=== PATIENT | female | born 1980 | race Caucasian/White ===

== ENCOUNTER 2016-07-22 09:37 | Emergency (ER) | payer OTHER ==
[2016-07-22 10:06] VITALS: BP 113/69; PULSE 90; RESP 18; TEMP 96.9
--- NOTE | 2016-07-22 10:39 | ED ---
Upper Extremity HPI - General Chief Complaint: Extremity Injury, Upper Stated Complaint: shoulder pain Time Seen by Provider: 07/22/16 10:24 Source: patient Mode of arrival: ambulatory Limitations: no limitations - History of Present Illness Initial Comments: This patient is a 36-year-old woman who presents with complaint of having left shoulder and back pains that come on after she had done some working. She indicates the left trapezius and left rhomboid areas. She states the pain is moderate however he gets severe she uses her left arm to reach for anything or with certain movements of her neck. She did not have any direct trauma to the area. There is no neurologic symptom. No radiation or weakness.. MD Complaint: Injury to:: left, shoulder Onset/Timin -: days(s) Other Extremity Injury: Shoulder: Left Other Injuries: none Handedness: right Improves With: none Worsens With: none Context: other (Lifting) Associated Symptoms: denies other symptoms Treatments Prior to Arrival: NSAIDS - Related Data Home Medications Medication Instructions Recorded Confirmed Ibuprofen [Motrin] 800 mg PO Q6H PRN 07/22/16 07/22/16 Previous Rx's Medication Instructions Recorded Ibuprofen [Motrin] 600 mg PO Q8HR PRN #20 tab 07/22/16 Methocarbamol [Robaxin-750] 750 mg PO TID PRN #30 tablet 07/22/16 Allergies Allergy/AdvReac Type Severity Reaction Status Date / Time tramadol AdvReac Confusion Verified 07/22/16 10:37 Review of Systems ROS Statement: Those systems with pertinent positive or pertinent negative responses have been documented in the HPI. ROS Other: All systems not noted in ROS Statement are negative. Constitutional: Denies: fever, chills, weakness Respiratory: Denies: cough, dyspnea Cardiovascular: Denies: chest pain, palpitations Musculoskeletal: Reports: as per HPI, myalgia. Denies: back pain, joint swelling, arthralgia Neurological: Denies: weakness, numbness Past Medical History Past Medical History: No Reported History History of Any Multi-Drug Resistant Organisms: None Reported Past Surgical History: Tonsillectomy Past Psychological History: Anxiety, Bipolar, Depression Smoking Status: Current every day smoker Past Alcohol Use History: None Reported Past Drug Use History: None Reported General Exam Limitations: no limitations General appearance: alert, in no apparent distress Head exam: Present: atraumatic, normocephalic Neck exam: Present: normal inspection, full ROM. Absent: tenderness, meningismus Extremities exam: Present: normal inspection, full ROM, tenderness (There is tenderness and increased tone to the left trapezius muscle as well as left rhomboid muscles. No bony tenderness or deformity), normal capillary refill Back exam: Present: normal inspection. Absent: vertebral tenderness Neurological exam: Present: alert. Absent: motor sensory deficit Skin exam: Present: warm, dry, intact, normal color. Absent: rash Course Vital Signs 07/22/16 10:02 Temperature 96.9 F L Pulse Rate 90 Respiratory 18 Rate Blood Pressure 113/69 O2 Sat by Pulse 98 Oximetry Disposition Clinical Impression: Strain of shoulder Disposition: HOME SELF-CARE Condition: Good Instructions: Muscle Strain (ED) Prescriptions: Ibuprofen [Motrin] 600 mg PO Q8HR PRN #20 tab PRN Reason: Pain Methocarbamol [Robaxin-750] 750 mg PO TID PRN #30 tablet PRN Reason: pain Referrals: Jeffrey Whaley MD [Primary Care Provider] - 1-2 days
== END 2016-07-22 11:05 | disposition home or self-care (01) ==
LOC: EC 09:37
DX: S46.912A Strain of unspecified muscle, fascia and tendon at shoulder and upper arm level, left arm, initial encounter (principal); F17.200 Nicotine dependence, unspecified, uncomplicated; Z88.6 Allergy status to analgesic agent; X50.9XXA Other and unspecified overexertion or strenuous movements or postures, initial encounter
CPT/HCPCS: 99283

== ENCOUNTER 2017-03-15 14:22 | Emergency (ER) | payer OTHER ==
[2017-03-15 14:29] VITALS: BP 111/71; PULSE 71; RESP 16; TEMP 97
--- NOTE | 2017-03-15 15:15 | ED ---
ENT HPI - General Chief complaint: Dental/Oral Stated complaint: Dental Pain Time Seen by Provider: 03/15/17 14:40 Source: patient Mode of arrival: ambulatory Limitations: no limitations - History of Present Illness Initial comments: This is a 36-year-old female who presents to the emergency department with chief complaint of dental pain. Patient states that she broke a left lower molar a few months ago. Yesterday she began to have pain in that area. She took ibuprofen which helped. This morning her pain had increased. Patient states that she does not have a dentist. Denies any drainage. Denies any radiation to jaw or neck. Denies any swelling. Denies fever, chills, chest pain , shortness of breath, abdominal pain, nausea or vomiting, constipation or diarrhea, dysuria or hematuria, numbness or tingling, headache or vision changes. - Related Data Home Medications Medication Instructions Recorded Confirmed Acetaminophen Tab [Tylenol Tab] 325 mg PO Q4H PRN 03/15/17 03/15/17 Cyclobenzaprine [Flexeril] 10 mg PO TID PRN 03/15/17 03/15/17 Diazepam [Valium] 10 mg PO BID PRN 03/15/17 03/15/17 Ibuprofen [Motrin] 1,000 mg PO Q6H PRN 03/15/17 03/15/17 Morphine Unknown Dose 1 tab PO ONCE PRN 03/15/17 03/15/17 Previous Rx's Medication Instructions Recorded Ibuprofen 600 mg PO Q6HR #30 tablet 03/15/17 Penicillin V Potassium [Pen Vee K] 500 mg PO QID 10 Days tab 03/15/17 Allergies Allergy/AdvReac Type Severity Reaction Status Date / Time tramadol AdvReac Confusion Verified 03/15/17 14:34 Review of Systems ROS Statement: Those systems with pertinent positive or pertinent negative responses have been documented in the HPI. ROS Other: All systems not noted in ROS Statement are negative. Past Medical History Past Medical History: No Reported History Additional Past Medical History / Comment(s): backpain History of Any Multi-Drug Resistant Organisms: None Reported Past Surgical History: Tonsillectomy Past Psychological History: Anxiety, Bipolar, Depression Smoking Status: Current every day smoker Past Alcohol Use History: None Reported Past Drug Use History: None Reported General Exam - General Exam Comments Initial Comments: General: Awake and alert, well-developed; in no apparent distress. HEENT: Head atraumatic, normocephalic. Pupils are equal, round and reactive to light. Extraocular movements intact. Oropharynx moist without erythema or exudate. Poor dentition throughout. Tooth #18 is missing crown. No areas of fluctuance or masses noted. Neck: Supple. Normal ROM. Cardiovascular: Regular rate and rhythm. No murmurs, rubs or gallops. Chest symmetrical. Respiratory: Lungs clear to auscultation bilaterally. No wheezes, rales or rhonchi. Normal respiratory effort with no use of accessory muscles. Skin: [place], warm and dry without rashes or lesions. Neurological: Alert and oriented x3. CN II-XII grossly intact. Speech is fluent and answers are appropriate. No focal neuro deficits. Psychiatric: Normal mood and affect. No overt signs of depression or anxiety noted. Limitations: no limitations Course Vital Signs 03/15/17 14:24 Temperature 97 F L Pulse Rate 71 Respiratory 16 Rate Blood Pressure 111/71 O2 Sat by Pulse 97 Oximetry Medical Decision Making - Medical Decision Making This is a 36-year-old female who presented to the emergency department for evaluation of toothache. Patient is missing crown of tooth #18. There are no areas of fluctuance or masses noted. Patient will be discharged home with a prescription for antibiotics and ibuprofen. She will be provided referral to dental clinic. I advised her to call them tomorrow morning to set up an appointment. Patient is in agreement with plan and voices understanding. All questions were answered. Disposition Clinical Impression: Fracture of tooth Disposition: HOME SELF-CARE Condition: Good Instructions: Toothache (ED) Additional Instructions: Please take medications as prescribed. Please follow up with primary care provider within 1-2 days. Return to emergency department if symptoms should worsen or any concerns arise. Please follow up with the [facility] dental clinic. [facility] [place] [address]. Phone number [phone] for new patients or [phone] for existing patients. Prescriptions: Ibuprofen 600 mg PO Q6HR #30 tablet Penicillin V Potassium [Pen Vee K] 500 mg PO QID 10 Days tab Referrals: Aretha Serrano MD [Primary Care Provider] - 1-2 days Time of Disposition: 15:14
== END 2017-03-15 15:20 | disposition home or self-care (01) ==
LOC: EC 14:22
DX: S02.5XXA Fracture of tooth (traumatic), initial encounter for closed fracture (principal); F17.200 Nicotine dependence, unspecified, uncomplicated; Z88.6 Allergy status to analgesic agent
CPT/HCPCS: 99282

== ENCOUNTER → 2017-04-20 | Outpatient (CLI) | payer OTHER ==
--- NOTE | 2017-04-21 08:36 | MM ---
Reason for exam: screening (asymptomatic). Baseline mammogram. History: Patient is nulliparous. Physical Findings: Nurse Summary: 0.5cm nodule in the right breast at 12 o'clock (nurse kalia). MG Screening Mammo w CAD Bilateral CC and MLO view(s) were taken. The breast tissue is heterogeneously dense. This may lower the sensitivity of mammography. There is no discrete abnormality. These results were verbally communicated with the patient and result sheet given to the patient on 04/20/17. ASSESSMENT: Incomplete: need additional imaging evaluation, BI-RAD 0 RECOMMENDATION: Ultrasound of the right breast. (at palpable) [facility] will attempt to contact patient to return for ultrasound.
--- NOTE | 2017-04-21 08:42 | USB ---
Reason for exam: additional evaluation requested from abnormal screening. History: Patient is nulliparous. Physical Findings: Breast exam preformed at baseline screening. US Breast Workup Limited RT Right breast ultrasound includes all four quadrants, the retroareolar region and axilla. Finding demonstrates a 0.4 x 0.2 x 0.5cm mixed lesion at 1 o'clock, a 0.5 x 0.3 x 0.6cm cystic cluster at 2 o'clock, a 0.8 x 0.4 x 0.7cm mixed lesion at 2 o'clock and a 0.5 x 0.3 x 0.6cm mixed lesion at 3 o'clock. These results were verbally communicated with the patient and result sheet given to the patient on 04/20/17. ASSESSMENT: Probably benign, BI-RAD 3 RECOMMENDATION: Ultrasound of the right breast in 6 months. Manage patient on a clinical basis.
== END | disposition home or self-care (01) ==
LOC: RADMAMWWP 13:47
PROVIDERS: ATTEND Family Medicine
DX: Z12.31 Encounter for screening mammogram for malignant neoplasm of breast (principal); R92.8 Other abnormal and inconclusive findings on diagnostic imaging of breast
CPT/HCPCS: 77067

== ENCOUNTER 2017-05-02 10:05 | Emergency (ER) | payer OTHER ==
[2017-05-02 10:55] VITALS: RESP 18
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
[2017-05-02 12:14] VITALS: BP 125/78; PULSE 91; TEMP 98
== END 2017-05-02 11:45 | disposition home or self-care (01) ==
LOC: EC 10:05
DX: K04.7 Periapical abscess without sinus (principal); F17.200 Nicotine dependence, unspecified, uncomplicated; Z88.5 Allergy status to narcotic agent
CPT/HCPCS: 99282

== ENCOUNTER 2018-12-27 09:57 | Emergency (ER) | payer OTHER ==
[2018-12-27] MEDS ORDERED: ALBUTEROL NEBULIZED 2.5 MG/3 ML INHALATION STA (10:12)
--- NOTE | 2018-12-27 10:18 | ED ---
URI HPI - General Chief Complaint: Upper Respiratory Infection Stated Complaint: cold Time Seen by Provider: 12/27/18 10:03 Source: patient Mode of arrival: ambulatory Limitations: no limitations - History of Present Illness Initial Comments: Patient is a 38-year-old female presenting to the emergency Department with complaints of cough and upper respiratory symptoms x 1 week. Patient states she started off with mild upper respiratory type symptoms such as cough, congestion, runny nose for the first 3 days, symptoms started to improve for a day and then approximately 5 days ago, symptoms worsened. Patient states she is having some shortness of breath when she tried to do activities, cough with white/yellow sputum production and increase in fatigue. Patient denies fever, chills, nausea, vomiting, diarrhea. Patient is in every day smoker. No history of asthma, COPD, pneumonia. Patient denies chest pain. Patient has no other complaints at this time. Upon arrival to ER, Patient was slightly tachycardia at 101 and 93% on room air. Rest of vitals are normal, afebrile. - Related Data Home Medications Medication Instructions Recorded Confirmed Phenylephrine/Dm/Acetaminop/GG 30 ml PO Q4H PRN 12/27/18 12/27/18 [Vicks Dayquil Severe Cold-Flu] Previous Rx's Medication Instructions Recorded Albuterol Inhaler [Ventolin Hfa 1 - 2 puff INHALATION RT-Q6H PRN 12/27/18 Inhaler] #1 inhaler Azithromycin [Zithromax Z-pack] 0 mg PO DIRECTED #1 pack 12/27/18 Allergies Allergy/AdvReac Type Severity Reaction Status Date / Time tramadol AdvReac Confusion Verified 12/27/18 10:25 Review of Systems ROS Statement: Those systems with pertinent positive or pertinent negative responses have been documented in the HPI. ROS Other: All systems not noted in ROS Statement are negative. Past Medical History Past Medical History: No Reported History Additional Past Medical History / Comment(s): backpain History of Any Multi-Drug Resistant Organisms: None Reported Past Surgical History: Tonsillectomy Past Psychological History: Anxiety, Bipolar, Depression Smoking Status: Current every day smoker Past Alcohol Use History: None Reported Past Drug Use History: None Reported General Exam - General Exam Comments Initial Comments: GENERAL: Patient appears fatigued, uncomfortable. HEAD: Atraumatic, normocephalic. EYES: Pupils equal round and reactive to light, extraocular movements intact, sclera anicteric, conjunctiva are normal. ENT: Left TM and EAC is normal, right TM is erythematous and bulging. Nares patent, oropharynx clear without exudates. Moist mucous membranes. NECK: Normal range of motion, supple without lymphadenopathy or JVD. LUNGS: Bilateral upper lobe wheezes, mild congestion present. No rales or rhonchi. HEART: Slightly tachycardia rate and rhythm without murmurs, rubs or gallops. ABDOMEN: Soft, nontender, normoactive bowel sounds. No guarding, no rebound. No masses appreciated. : Deferred EXTREMITIES: Normal range of motion, no pitting or edema. No clubbing or cyanosis. NEUROLOGICAL: Cranial nerves II through XII grossly intact. Normal speech, normal gait. PSYCH: Normal mood, normal affect. SKIN: Warm, Dry, normal turgor, no rashes or lesions noted. Limitations: no limitations Course Vital Signs 12/27/18 12/27/18 12/27/18 09:59 10:13 10:29 Temperature 97.5 F L 97.5 F L Pulse Rate 101 H 85 84 Respiratory 16 Rate Blood Pressure 117/79 O2 Sat by Pulse 93 L 100 Oximetry 12/27/18 12/27/18 10:30 10:40 Temperature Pulse Rate 76 Respiratory Rate Blood Pressure 111/88 O2 Sat by Pulse 93 L Oximetry Medical Decision Making - Medical Decision Making Patient is a 38-year-old female presenting with shortness of breath and upper respiratory symptoms x 1 week. Patient is in every day smoker. Exam revealed mild scattered wheezes. Pulse ox 93% on arrival. Chest x-ray reveals no acute processes. Influenza and strep are both negative. Patient does have an erythematous and bulging right TM was over patient is denying ear pain at this time. Patient was given a breathing treatment and reports improvement in symptoms. Patient will be started on azithromycin and albuterol inhaler for symptoms. Patient will follow-up with PCP if symptoms persist after 3-5 days. Patient is agreement with this plan of care. Return parameters were discussed with the patient and she verbalized understanding. Case discussed with Dr. Zamudio. - Lab Data Lab Results 12/27/18 12/27/18 Range/Units 10:15 10:15 Influenza Type A RNA Not Detected (Not Detectd) Influenza Type B (PCR) Not Detected (Not Detectd) Group A Strep Rapid Negative (Negative) Disposition Clinical Impression: Acute upper respiratory infection Disposition: HOME SELF-CARE Condition: Stable Instructions (If sedation given, give patient instructions): Upper Respiratory Infection (ED) Additional Instructions: Please return to the Emergency Department if symptoms worsen or any other c oncerns. Take antibiotics as prescribed. Use inhaler as needed for cough and shortness of breath. Follow-up with PCP as needed. Prescriptions: Albuterol Inhaler [Ventolin Hfa Inhaler] 1 - 2 puff INHALATION RT-Q6H PRN #1 inhaler PRN Reason: Cough Azithromycin [Zithromax Z-pack] 0 mg PO DIRECTED #1 pack Is patient prescribed a controlled substance at d/c from ED?: No Referrals: Soheila Aponte MD [Primary Care Provider] - 1-2 days
--- NOTE | 2018-12-27 10:54 | XR ---
EXAMINATION TYPE: XR chest 2V DATE OF EXAM: 12/27/2018 COMPARISON: NONE TECHNIQUE: PA and lateral views submitted. HISTORY: Cough and shortness of breath FINDINGS: The lungs are clear and there is no pneumothorax, pleural effusion, or focal pneumonia. Scoliosis n oted. No overt failure. Mild hyperinflation of the lungs. IMPRESSION: 1. No acute process.
[2018-12-27 11:29] VITALS: BP 114/69; PULSE 79; RESP 18; TEMP 97.1
== END 2018-12-27 11:29 | disposition home or self-care (01) ==
LOC: EC 09:57
DX: J06.9 Acute upper respiratory infection, unspecified (principal); F17.200 Nicotine dependence, unspecified, uncomplicated; Z88.5 Allergy status to narcotic agent
CPT/HCPCS: 71046; 87081; 87430; 87502; 94640; 99284

== ENCOUNTER → 2019-03-01 | Outpatient (CLI) | payer OTHER ==
--- NOTE | 2019-03-01 13:55 | US ---
EXAMINATION TYPE: US transvaginal DATE OF EXAM: 03/01/2019 COMPARISON: NONE CLINICAL HISTORY: N94.6 Dysmenorrhea. Painful periods for many years, 0 TECHNIQUE: Transvaginal only per ordering physician. Date of LMP: 02/09/2019 EXAM MEASUREMENTS: Uterus: 5.6 x 3.3 x 4.1 cm Endometrial Stripe: 0.7 cm Right Ovary: 2.1 x 1.3 x 1.8 cm Left Ovary: 2.9 x 2.3 x 2.7 cm 1. Uterus: retroverted, mildly heterogeneous 2. Endometrium: wnl 3. Right Ovary: multiple follicles 4. Left Ovary: multiple follicles 5. Bilateral Adnexa: free fluid seen right adnexa 6. Posterior cul-de-sac: free fluid seen IMPRESSION: Small amount of free fluid in pelvis extending towards right adnexa is nonspecific otherw ise unremarkable study.
== END | disposition home or self-care (01) ==
LOC: RADUSWWP 12:14
PROVIDERS: ATTEND Obstetrics & Gynecology
DX: N94.6 Dysmenorrhea, unspecified (principal)
CPT/HCPCS: 76830

== ENCOUNTER 2019-08-04 13:38 | Emergency (ER) | payer OTHER ==
[2019-08-04 13:43] VITALS: BP 123/85; PULSE 82; RESP 18; TEMP 97.8
[2019-08-04] MEDS ORDERED: PROPARACAINE 0.5% OPHTH DROPS 15 ML BTL RIGHT EYE STA (14:08)
[2019-08-04] MEDS ORDERED: FLUORESCEIN STRIPS 1 MG STRIP LEFT EYE ONE (14:08)
--- NOTE | 2019-08-04 14:13 | ED ---
Eye Problem HPI - General Source: patient Mode of arrival: ambulatory Limitations: no limitations <Stefano Blanc - Last Filed: 08/04/19 14:23> <Laurita Zamudio - Last Filed: 08/08/19 00:26> - General Chief complaint: Eye Problems Stated complaint: eye injury Time Seen by Provider: 08/04/19 14:00 - History of Present Illness Initial comments: Patient is a 39-year-old female presenting to emergency Department with a chief complaint of right eye pain. Patient reports she wears contacts and after she removed the before going to bed she developed some discomfort. Patient reports she attempted to itch her eye afterwards and was followed by constant tearing, eye irritation and surrounding erythema. Patient denies any pain with extraocular movements. States there is blurry vision in right eye, however that is due to the constant tearing. Denies taking any other medication. tetanus is up-to-date. (Stefano Blanc) - Related Data Home Medications Medication Instructions Recorded Confirmed Phenylephrine/Dm/Acetaminop/GG 30 ml PO Q4H PRN 12/27/18 12/27/18 [Vicks Dayquil Severe Cold-Flu] Previous Rx's Medication Instructions Recorded Albuterol Inhaler (Mhu) [Ventolin 1 - 2 puff INHALATION RT-Q6H PRN 12/27/18 Hfa Inhaler (Mhu)] #1 inhaler Azithromycin [Zithromax Z-pack] 0 mg PO DIRECTED #1 pack 12/27/18 Tobramycin [Tobrex 0.3% Ophth Soln] 1 drop BOTH EYES Q4HR #5 ml 08/04/19 Allergies Allergy/AdvReac Type Severity Reaction Status Date / Time tramadol AdvReac Confusion Verified 08/04/19 13:43 Review of Systems ROS Other: All systems not noted in ROS Statement are negative. <Stefano Blanc - Last Filed: 08/04/19 14:23> ROS Other: All systems not noted in ROS Statement are negative. <Laurita Zamudio - Last Filed: 08/08/19 00:26> ROS Statement: Those systems with pertinent positive or pertinent negative responses have been documented in the HPI. Past Medical History Past Medical History: No Reported History Additional Past Medical History / Comment(s): backpain History of Any Multi-Drug Resistant Organisms: None Reported Past Surgical History: Tonsillectomy Past Psychological History: Anxiety, Bipolar, Depression Smoking Status: Current every day smoker Past Alcohol Use History: None Reported Past Drug Use History: None Reported <Stefano Blanc - Last Filed: 08/04/19 14:23> General Exam Limitations: no limitations General appearance: alert, in no apparent distress Head exam: Present: atraumatic, normocephalic, normal inspection Eye exam: Present: normal appearance, PERRL, EOMI, other (Corneal abrasion noted. Negative Shimon sign. No entrapment) Pupils: Present: normal accommodation ENT exam: Present: normal exam, mucous membranes moist Neck exam: Present: normal inspection, full ROM Respiratory exam: Present: normal lung sounds bilaterally Cardiovascular Exam: Present: regular rate, normal rhythm, normal heart sounds Extremities exam: Present: normal inspection, full ROM Back exam: Present: normal inspection, full ROM Neurological exam: Present: alert, oriented X3, normal gait Psychiatric exam: Present: normal affect, normal mood Skin exam: Present: warm, dry, intact, normal color <Stefano Blanc - Last Filed: 08/04/19 14:23> Course Vital Signs 08/04/19 13:38 Temperature 97.8 F Pulse Rate 82 Respiratory 18 Rate Blood Pressure 123/85 O2 Sat by Pulse 96 Oximetry Medical Decision Making <Stefano Blanc - Last Filed: 08/04/19 14:23> <Laurita Zamudio - Last Filed: 08/08/19 00:26> - Medical Decision Making Patient is a 39-year-old female presenting to the emergency department with a chief complaint of right eye pain. Patient was attempting to remove her contacts and then was itching afterward. Patient developed sudden eye discomfort along with tearing and surrounding erythema. On exam patient appears to have a corneal abrasion. Her tetanus is up-to-date. No signs of entrapment or Shimon sign. No cellulitic changes there was just orbital or periorbital cellulitis. Patient started on tobramycin. Advised to return to emergency department if symptoms worsen. Advised to follow-up with an [employer] ticket checker. Return parameters thoroughly discussed the patient is understanding and agreeable. Case discussed with physician. (Stefano Blanc) I was available for consultation in the emergency department. The history and physical exam were done by the midlevel provider. I was consulted for this patients care. I reviewed the case with the midlevel provider and based on their presentation of the patient, I agree with the assessment, medical decision making and plan of care as documented. No signs of orbital or periorbital cellulitis. Chart was dictated using [employer] dictation software. Attempts were made to correct any dictation errors however some typographical errors may persist. Patient was seen during a national state of emergency due to the Covid-19 pandemic. (Laurita Zamudio) Disposition Is patient prescribed a controlled substance at d/c from ED?: No Time of Disposition: 14:37 <Stefano Blanc - Last Filed: 08/04/19 14:23> <Laurita Zamudio - Last Filed: 08/08/19 00:26> Clinical Impression: Corneal abrasion of right eye due to contact lens Disposition: HOME SELF-CARE Condition: Good Instructions (If sedation given, give patient instructions): Corneal Abrasion (DC) Additional Instructions: Take prescribed medication as directed. Follow up with an [employer] ticket checker in 3 days if symptoms not improved. Return to emergency department if symptoms worsen. Apply ice compress on the eye to help with the symptoms. Prescriptions: Tobramycin [Tobrex 0.3% Ophth Soln] 1 drop BOTH EYES Q4HR #5 ml Referrals: Soheila Aponte MD [Primary Care Provider] - 1-2 days
== END 2019-08-04 15:24 | disposition home or self-care (01) ==
LOC: EC 13:38
DX: H18.821 Corneal disorder due to contact lens, right eye (principal); F17.200 Nicotine dependence, unspecified, uncomplicated; Z88.5 Allergy status to narcotic agent
CPT/HCPCS: 99283

== ENCOUNTER 2019-09-27 13:19 | Emergency (ER) | payer OTHER ==
[2019-09-27 13:21] VITALS: RESP 18; TEMP 98
--- NOTE | 2019-09-27 14:15 | ED ---
General Adult HPI - General Chief complaint: ENT Stated complaint: Sore Throat, Body Aches Source: patient Mode of arrival: ambulatory Limitations: no limitations - History of Present Illness Initial comments: Patient is a 39-year-old female with no past medical history reasons emergency room with reported nasal congestion, sore throat and productive cough since yesterday. Reports that one of her children are sick as she got it from them. States it started with a scratchy throat. She then began having a productive cough with yellow sputum. Patient woke this morning with significant nasal congestion. Denies any fevers. Has not taken any medications for her symptoms at home. Called her primary care doctor condition and they couldn't get her in until tomorrow so she came into the emergency room. Denies hemoptysis, chest pain or shortness of breath. No bowel pain. No diarrhea or changes in urination. No concern for . Denies any ear pain. Does have a history of ALLERGIES. No other alleviating, precipitating or modifying factors. She denies contact with any covid positive contacts - Related Data Home Medications Medication Instructions Recorded Confirmed Acetaminophen Tab [Tylenol Tab] 1,000 mg PO Q6HR PRN 09/27/19 09/27/19 Ergocalciferol [Vitamin D2] 50,000 unit PO TUTH 09/27/19 09/27/19 Loratadine [Claritin] 10 mg PO DAILY 09/27/19 09/27/19 PARoxetine [Paxil] 10 mg PO DAILY 09/27/19 09/27/19 Previous Rx's Medication Instructions Recorded Albuterol Sulfate [Proair Hfa] 1 - 2 puff INHALATION Q4HR PRN #1 09/27/19 inhaler Loratadine [Claritin] 10 mg PO DAILY #30 tab 09/27/19 guaiFENesin [Mucinex] 600 mg PO Q12HR PRN #24 tab.er.12h 09/27/19 Allergies Allergy/AdvReac Type Severity Reaction Status Date / Time tramadol AdvReac Confusion Verified 09/27/19 13:49 Review of Systems ROS Statement: Those systems with pertinent positive or pertinent negative responses have been documented in the HPI. ROS Other: All systems not noted in ROS Statement are negative. Past Medical History Past Medical History: No Reported History Additional Past Medical History / Comment(s): backpain History of Any Multi-Drug Resistant Organisms: None Reported Past Surgical History: Tonsillectomy Past Psychological History: Anxiety, Bipolar, Depression Smoking Status: Current every day smoker Past Alcohol Use History: None Reported Past Drug Use History: None Reported General Exam Limitations: no limitations Course Vital Signs 09/27/19 09/27/19 13:20 15:53 Temperature 98.0 F Pulse Rate 97 84 Respiratory 18 18 Rate Blood Pressure 115/76 122/78 O2 Sat by Pulse 97 98 Oximetry Medical Decision Making - Medical Decision Making Upon arrival the patient is placed in room 20. Thorough history and physical exam was performed. Patient's throat was swabbed for strep. Chest x-ray was performed. Strep test is negative. Chest x-ray demonstrates no acute pulmonary process. Patient was given viscous lidocaine and a dose of Decadron 10 mg by mouth. I discussed diagnosis, differential and treatment options. I did recommend treatment with albuterol inhaler, Mucinex and Claritin. Patient has an appointment with her primary care doctor tomorrow. I encouraged that she keep this visit. Return to the emergency room for any new or worsening symptoms. Patient discharged home stable condition - Lab Data Lab Results 09/27/19 Range/Units 14:04 Group A Strep Rapid Negative (Negative) Disposition Clinical Impression: Pharyngitis, Cough, Bronchospasm Disposition: HOME SELF-CARE Condition: Stable Instructions (If sedation given, give patient instructions): Strep Throat (ED) Additional Instructions: Please follow up with your primary care doctor at your appt tomorrow. Return to the emergency room for any new or worsening symptoms Prescriptions: Loratadine [Claritin] 10 mg PO DAILY #30 tab guaiFENesin [Mucinex] 600 mg PO Q12HR PRN #24 tab.er.12h PRN Reason: Nasal Congestion Albuterol Sulfate [Proair Hfa] 1 - 2 puff INHALATION Q4HR PRN #1 inhaler PRN Reason: difficulty in breathing Is patient prescribed a controlled substance at d/c from ED?: No Referrals: Soheila Aponte MD [Primary Care Provider] - 1-2 days Time of Disposition: 15:51
--- NOTE | 2019-09-27 14:23 | XR ---
EXAMINATION TYPE: XR chest 2V DATE OF EXAM: 09/27/2019 COMPARISON: Chest radiograph 12/27/2018. HISTORY: Cough, pain. Sore throat, congestion, body aches for 2 days. TECHNIQUE: Frontal and lateral views of the chest are obtained. FINDINGS: There is no focal air space opacity, pleural effusion, or pneumothorax seen. The cardiac silhouette size is within normal limits. Dextroscoliosis of the thoracic spine. The osseous structure s are intact. IMPRESSION: No acute pulmonary process.
[2019-09-27] MEDS ORDERED: LIDOCAINE VISCOUS 2% 15 ML CUP MUCOUS MEM ONE (15:00)
[2019-09-27] MEDS ORDERED: DEXAMETHASONE 4 MG TAB PO STA (15:00)
[2019-09-27 16:02] VITALS: BP 122/78; PULSE 84
== END 2019-09-27 15:53 | disposition home or self-care (01) ==
LOC: EC 13:19
DX: J02.9 Acute pharyngitis, unspecified (principal); J98.01 Acute bronchospasm; F41.9 Anxiety disorder, unspecified; F32.9 Major depressive disorder, single episode, unspecified; F17.200 Nicotine dependence, unspecified, uncomplicated; Z79.899 Other long term (current) drug therapy; Z88.6 Allergy status to analgesic agent; Z20.828 Contact with and (suspected) exposure to other viral communicable diseases; Z90.89 Acquired absence of other organs
CPT/HCPCS: 87081; 87430; 71046; 99283; U0003; J8540

== ENCOUNTER 2020-04-12 18:14 | Emergency (ER) | payer OTHER ==
[2020-04-12 18:18] VITALS: BP 134/81; PULSE 63; RESP 18; TEMP 97.9
[2020-04-12] MEDS ORDERED: ACET/COD 300 MG/30 MG STARTER PACK 6 TAB BTL PO STA (18:28)
[2020-04-12] MEDS ORDERED: HYDROcodone/APAP 5-325MG 1 EACH TAB PO STA (18:28)
--- NOTE | 2020-04-12 18:28 | ED ---
ENT HPI - General Chief complaint: Dental/Oral Stated complaint: dental pain Time Seen by Provider: 04/12/20 18:18 Source: patient, RN notes reviewed Limitations: no limitations - History of Present Illness Initial comments: This a 39-year-old female presents emergency Department with chief complaint of dental pain. Patient states pain started yesterday has worsened throughout the night. Patient has known bad tooth and right lower. No fevers or chills. No difficulty swallowing. Patient states that she's been taken some Tylenol at home nothing recent states is not helping. Patient has not seen a dentist recently patient offers no complaints. - Related Data Home Medications Medication Instructions Recorded Confirmed Acetaminophen Tab [Tylenol Tab] 1,000 mg PO Q6HR PRN 09/27/19 09/27/19 Ergocalciferol [Vitamin D2] 50,000 unit PO TUTH 09/27/19 09/27/19 Loratadine [Claritin] 10 mg PO DAILY 09/27/19 09/27/19 PARoxetine [Paxil] 10 mg PO DAILY 09/27/19 09/27/19 Previous Rx's Medication Instructions Recorded Albuterol Sulfate [Proair Hfa] 1 - 2 puff INHALATION Q4HR PRN #1 09/27/19 inhaler Loratadine [Claritin] 10 mg PO DAILY #30 tab 09/27/19 guaiFENesin [Mucinex] 600 mg PO Q12HR PRN #24 tab.er.12h 09/27/19 Ibuprofen [Motrin] 600 mg PO Q8HR PRN #20 tab 04/12/20 Penicillin V Potassium [Pen Vee K] 500 mg PO QID #40 tablet 04/12/20 Allergies Allergy/AdvReac Type Severity Reaction Status Date / Time tramadol AdvReac Confusion Verified 04/12/20 18:18 Review of Systems ROS Statement: Those systems with pertinent positive or pertinent negative responses have been documented in the HPI. ROS Other: All systems not noted in ROS Statement are negative. Past Medical History Past Medical History: No Reported History Additional Past Medical History / Comment(s): backpain History of Any Multi-Drug Resistant Organisms: None Reported Past Surgical History: Tonsillectomy Past Psychological History: Anxiety, Bipolar, Depression Smoking Status: Current every day smoker Past Alcohol Use History: None Reported Past Drug Use History: None Reported General Exam Limitations: no limitations General appearance: alert, in no apparent distress Head exam: Present: atraumatic, normocephalic, normal inspection ENT exam: Present: mucous membranes moist. Absent: normal exam, normal oropharynx (Dental fracture, erosion of #32, no drainable abscess) Neck exam: Present: normal inspection, full ROM. Absent: tenderness, meningis mus, lymphadenopathy Respiratory exam: Present: normal lung sounds bilaterally. Absent: respiratory distress, wheezes, rales, rhonchi, stridor Cardiovascular Exam: Present: regular rate, normal rhythm, normal heart sounds. Absent: systolic murmur, diastolic murmur, rubs, gallop, clicks Course Vital Signs 04/12/20 18:15 Temperature 97.9 F Pulse Rate 63 Respiratory 18 Rate Blood Pressure 134/81 O2 Sat by Pulse 100 Oximetry Medical Decision Making - Medical Decision Making Patient was started on antibiotics, concerns of infection. Patient instructed to follow-up with dentist. Patient cried pain control return parameters were discussed. Disposition Clinical Impression: Fracture of tooth, Toothache Disposition: HOME SELF-CARE Condition: Stable Instructions (If sedation given, give patient instructions): Toothache (ED) Additional Instructions: Please return to the Emergency Department if symptoms worsen or any other concerns. Prescriptions: Ibuprofen [Motrin] 600 mg PO Q8HR PRN #20 tab PRN Reason: Pain Penicillin V Potassium [Pen Vee K] 500 mg PO QID #40 tablet Is patient prescribed a controlled substance at d/c from ED?: No Referrals: Soheila Aponte MD [Primary Care Provider] - 1-2 days Time of Disposition: 18:28
== END 2020-04-12 18:53 | disposition home or self-care (01) ==
LOC: EC 18:14
DX: S02.5XXA Fracture of tooth (traumatic), initial encounter for closed fracture (principal); M54.9 Dorsalgia, unspecified; F41.9 Anxiety disorder, unspecified; F32.9 Major depressive disorder, single episode, unspecified; F17.200 Nicotine dependence, unspecified, uncomplicated; Z79.899 Other long term (current) drug therapy; Z88.5 Allergy status to narcotic agent; X58.XXXA Exposure to other specified factors, initial encounter
CPT/HCPCS: 99283

== ENCOUNTER 2020-07-27 22:48 | Emergency (ER) | payer OTHER ==
[2020-07-27 23:15] LABS: Basophils # (A) 0.1 k/uL (0-0.2); Basophils % (A) 0 %; Eosinophils # (A) 0.1 k/uL (0-0.7); Eosinophils % (A) 1 %; HCT 48.6 % (34.0-46.0); HGB 16.1 gm/dL (11.4-16.0); Lymphocytes # (A) 2.4 k/uL (1.0-4.8); Lymphocytes % (A) 16 %; MCH 29.9 pg (25.0-35.0); MCV 90.5 fL (80.0-100.0); Mean Platelet Volume 7.9; Monocytes # (A) 0.5 k/uL (0-1.0); Monocytes % (A) 4 %; Neutrophils # (A) 11.3 k/uL (1.3-7.7); Neutrophils % (A) 77 %; Platelet Count 244 k/uL (150-450); RBC 5.37 m/uL (3.80-5.40); RDW 13.5 % (11.5-15.5); WBC 14.6 k/uL (3.8-10.6)
[2020-07-27 23:26] LABS: Albumin 4.5 g/dL (3.5-5.0); Calcium 9.4 mg/dL (8.4-10.2); Potassium 4.3 mmol/L (3.5-5.1); Total Bilirubin 0.6 mg/dL (0.2-1.3); Total Protein 7.6 g/dL (6.3-8.2)
[2020-07-27 23:40] LABS: Appearance,Urine Cloudy (Clear); Bilirubin,Urine Negative (Negative); Blood,Urine Negative (Negative); Color,Urine Yellow; Glucose,Urine (UA) Negative (Negative); Hyaline Casts,Urine 3 /lpf (0-2); Ketones,Urine Negative (Negative); Leukocyte Esterase,Urine Negative (Negative); Mucus,Urine Many /hpf; Nitrite,Urine Negative (Negative); Protein,Urine Trace (Negative); RBC,Urine 1 /hpf (0-5); Specific Gravity,Urine 1.026 (1.001-1.035); Squamous Epithelial Cell,Urine 8 /hpf (0-4); WBC,Urine 2 /hpf (0-5)
[2020-07-27] MEDS ORDERED: MORPHINE SULFATE 4 MG/ML SYRINGE IVP STA (23:49)
--- NOTE | 2020-07-28 00:07 | US ---
EXAMINATION TYPE: US pelvic complete DATE OF EXAM: 07/27/2020 COMPARISON: 03/01/2019 CLINICAL HISTORY: pain. Pelvic pain TECHNIQUE: Transvaginal ER exam. Date of LMP: 1 to 2 weeks ago EXAM MEASUREMENTS: Uterus: 6.3 x 3.4 x 4.3 cm Endometrial Stripe: 0.7 cm Right Ovary: 2.4 x 1.7 x 2.8 cm Left Ovary: 2.9 x 1.9 x 2.0 cm 1. Uterus: retroverted, wnl 2. Endometrium: wnl 3. Right Ovary: 1.7 x 1.4 x 1.1cm corpus luteal cyst 4. Left Ovary: wnl Spectral, color and waveform doppler imaging shows good arterial and venous flow within the ovaries ; there is no evidence for ovarian torsion. 5. Bilateral Adnexa: 5.3 x 2.1 x 4.1cm elongated non peristalsing fluid filled area within right adn exa, possible ovarian cyst vs. hydrosalpinx vs. other 6. Posterior cul-de-sac: wnl IMPRESSION: Elongated fluid collection in the right adnexal region. Clinical significance is not clear. This coul d be a hydrosalpinx. This could also be some pelvic fluid with loculation. No evidence of a gestation al sac.
--- NOTE | 2020-07-28 01:14 | CT ---
EXAMINATION TYPE: CT abdomen pelvis w con DATE OF EXAM: 07/28/2020 COMPARISON: None HISTORY: Left flank pain CT DLP: 847.1 mGycm Automated exposure control for dose reduction was used. CONTRAST: Performed with IV Contrast, patient injected with 100ml mL of Isovue 300. Images were obtained from the diaphragm to the floor the pelvis with IV contrast FINDINGS: Lung bases are clear. There is no pleural effusion. Heart size is normal. There is no pericardial eff usion. Liver spleen stomach pancreas gallbladder appear normal. Bile ducts are not dilated. There is no adre nal mass. Kidneys show satisfactory contrast opacification. There is no hydronephrosis. Delayed image s show normal renal excretion. There is no retroperitoneal adenopathy. Bladder distends smoothly. The re is no inguinal hernia. There is no free fluid in the pelvis. I see no definite pelvic mass. The ut erus is retroverted. Appendix is low in the pelvis and lateral and appears normal. There is mild thoracolumbar levoscoliosis. Disc spaces are fairly normal. There is no lumbar compress ion fracture. The bony pelvis is intact. Hip joints are intact. There is no hip dysplasia. There are cystic changes on both ovaries. IMPRESSION: No acute abnormality of the abdomen pelvis. There is evidence for bilateral ovarian cysts that measur e up to 2 cm. Retroverted uterus.
[2020-07-28] MEDS ORDERED: SODIUM CHLORIDE 0.9% 1,000 ML IV ONE (01:15)
[2020-07-28] MEDS ORDERED: SODIUM CHLORIDE 0.9% 500 ML 500 ML IV ONE (01:15)
[2020-07-28] MEDS ORDERED: SODIUM CHLORIDE 0.9% 1,000 ML IV SCH (01:15)
[2020-07-28 01:22] VITALS: BP 100/59; PULSE 72; RESP 14; TEMP 98.8
[2020-07-28] MEDS ORDERED: cefTRIAXone IN SWFI 1,000 MG/10 ML SYRINGE IVP ONE (01:30)
[2020-07-28] MEDS ORDERED: DOXYCYCLINE 100 MG CAP PO STA (01:49)
[2020-07-28] MEDS ORDERED: ACET/COD 300 MG/30 MG STARTER PACK 6 TAB BTL PO STA (01:51)
--- NOTE | 2020-07-28 01:51 | ED ---
Abdominal Pain HPI - General Chief Complaint: Abdominal Pain Stated Complaint: Abd pain/ left flank pain Time Seen by Provider: 07/27/20 23:00 Source: patient Mode of arrival: ambulatory Limitations: no limitations - History of Present Illness Initial Comments: 40 year old female presenting to the emergency department today for chief complaint of lower pelvic cramping. Patient states she had some cramping that began last night. She states it intensified this morning as her present all day. Patient states it was intense this afternoon was prompting her to come to the emergency department. Patient denies any known obvious vaginal discharge. She denies any fevers chills general malaise. She denies upper abdominal pain chest pain shortness of breath or concern for sexual transmitted diseases. Patient denies any rectal bleeding or dark stools. She denies any nausea vomiting or constipation. Upon arrival patient appears uncomfortable but n ontoxic - Related Data Home Medications Medication Instructions Recorded Confirmed Acetaminophen Tab [Tylenol Tab] 1,000 mg PO Q6HR PRN 09/27/19 09/27/19 Ergocalciferol [Vitamin D2] 50,000 unit PO TUTH 09/27/19 09/27/19 Loratadine [Claritin] 10 mg PO DAILY 09/27/19 09/27/19 PARoxetine [Paxil] 10 mg PO DAILY 09/27/19 09/27/19 Previous Rx's Medication Instructions Recorded Albuterol Sulfate [Proair Hfa] 1 - 2 puff INHALATION Q4HR PRN #1 09/27/19 inhaler Loratadine [Claritin] 10 mg PO DAILY #30 tab 09/27/19 guaiFENesin [Mucinex] 600 mg PO Q12HR PRN #24 tab.er.12h 09/27/19 Penicillin V Potassium [Pen Vee K] 500 mg PO QID #40 tablet 04/12/20 RX: Ibuprofen [Motrin] 600 mg PO Q8HR PRN #20 tab 04/12/20 RX: Doxycycline [Vibramycin] 100 mg PO BID 10 Days #20 capsule 07/28/20 Allergies Allergy/AdvReac Type Severity Reaction Status Date / Time tramadol AdvReac Confusion Verified 07/27/20 22:55 Review of Systems ROS Statement: Those systems with pertinent positive or pertinent negative responses have been documented in the HPI. ROS Other: All systems not noted in ROS Statement are negative. Past Medical History Past Medical History: COPD Additional Past Medical History / Comment(s): backpain History of Any Multi-Drug Resistant Organisms: None Reported Past Surgical History: Tonsillectomy Past Psychological History: Anxiety, Bipolar, Depression Smoking Status: Current every day smoker Past Alcohol Use History: None Reported Past Drug Use History: None Reported General Exam - General Exam Comments Initial Comments: General: The patient is awake and alert, in no distress Eye: Pupils are equal, round and reactive to light, extra-ocular movements are intact. No nystagmus. There is normal conjunctiva bilaterally. No signs of icterus. Ears, nose, mouth and throat: There are moist mucous membranes and no oral lesions. Neck: The neck is supple, there is no tenderness or JVD. Cardiovascular: There is a regular rate and rhythm. No murmur, rub or gallop is appreciated. Respiratory: Lungs are clear to auscultation, respirations are non-labored, breath sounds are equal. No wheezes, stridor, rales, or rhonchi. Gastrointestinal: Soft, non-distended, diffuse lower pelvic tenderness, abdomen is without masses or organomegaly noted. There is no rebound or guarding present : cervical motion tenderness with mild left adnexal tenderness. Musculoskeletal: Normal ROM, no tenderness. Strength 5/5. Sensation intact. Radial and Dp pulses equal bilaterally 2+. Neurological: A&O x 3. CN II-XII intact grossly, There are no obvious motor or sensory deficits. Coordination appears grossly intact. Speech is normal. Skin: Skin is warm and dry and no rashes or lesions are noted. Psychiatric: Cooperative, appropriate mood & affect, normal judgment. Limitations: no limitations Course Vital Signs 07/27/20 07/28/20 22:52 01:21 Temperature 98 F 98.8 F Pulse Rate 102 H 72 Respiratory 28 H 14 Rate Blood Pressure 110/73 100/59 O2 Sat by Pulse 96 97 Oximetry Medical Decision Making - Medical Decision Making Leukocytosis. Significant discharge on pelvic examination concerning for pelvic inflammatory disease with the presence of cervical motion tenderness. Patient has findings consistent with hydrosalpinx which I feel are likely secondary to the pelvic inflammatory disease. Patient is afebrile. She does not appear toxic. She was given Rocephin the emergency department and will discharged on doxycycline BID for 10 days. Discussed need for return for worsening pain/fevers/nausea/vomiting. pt discharged appearing well Dr Pedraza agreeable to car eplan Pt aware of importance of timely OBGYN f/u. - Lab Data Result diagrams: 07/27/20 23:05 07/27/20 23:05 Lab Results 07/27/20 07/27/20 07/27/20 Range/Units 23:05 23:05 23:05 WBC 14.6 H (3.8-10.6) k/uL RBC 5.37 (3.80-5.40) m/uL Hgb 16.1 H (11.4-16.0) gm/dL Hct 48.6 H (34.0-46.0) % MCV 90.5 (80.0-100.0) fL MCH 29.9 (25.0-35.0) pg MCHC 33.0 (31.0-37.0) g/dL RDW 13.5 (11.5-15.5) % Plt Count 244 (150-450) k/uL MPV 7.9 Neutrophils % 77 % Lymphocytes % 16 % Monocytes % 4 % Eosinophils % 1 % Basophils % 0 % Neutrophils # 11.3 H (1.3-7.7) k/uL Lymphocytes # 2.4 (1.0-4.8) k/uL Monocytes # 0.5 (0-1.0) k/uL Eosinophils # 0.1 (0-0.7) k/uL Basophils # 0.1 (0-0.2) k/uL Sodium (137-145) mmol/L Potassium (3.5-5.1) mmol/L Chloride (98-107) mmol/L Carbon Dioxide (22-30) mmol/L Anion Gap mmol/L BUN (7-17) mg/dL Creatinine (0.52-1.04) mg/dL Est GFR (CKD-EPI)AfAm (>60 ml/min/1.73 sqM) Est GFR (CKD-EPI)NonAf (>60 ml/min/1.73 sqM) Glucose (74-99) mg/dL Calcium (8.4-10.2) mg/dL Total Bilirubin (0.2-1.3) mg/dL AST (14-36) U/L ALT (4-34) U/L Alkaline Phosphatase (38-126) U/L Total Protein (6.3-8.2) g/dL Albumin (3.5-5.0) g/dL Amylase (30-110) U/L Lipase (23-300) U/L Urine Color Yellow Urine Appearance Cloudy H (Clear) Urine pH 6.0 (5.0-8.0) Ur Specific Simms 1.026 (1.001-1.035) Urine Protein Trace H (Negative) Urine Glucose (UA) Negative (Negative) Urine Ketones Negative (Negative) Urine Blood Negative (Negative) Urine Nitrite Negative (Negative) Urine Bilirubin Negative (Negative) Urine Urobilinogen 2.0 (<2.0) mg/dL Ur Leukocyte Esterase Negative (Negative) Urine RBC 1 (0-5) /hpf Urine WBC 2 (0-5) /hpf Ur Squamous Epith Cells 8 H (0-4) /hpf Hyaline Casts 3 H (0-2) /lpf Urine Mucus Many H (None) /hpf Urine HCG, Qual Not Detected (Not Detectd) 07/27/20 Range/Units 23:05 WBC (3.8-10.6) k/uL RBC (3.80-5.40) m/uL Hgb (11.4-16.0) gm/dL Hct (34.0-46.0) % MCV (80.0-100.0) fL MCH (25.0-35.0) pg MCHC (31.0-37.0) g/dL RDW (11.5-15.5) % Plt Count (150-450) k/uL MPV Neutrophils % % Lymphocytes % % Monocytes % % Eosinophils % % Basophils % % Neutrophils # (1.3-7.7) k/uL Lymphocytes # (1.0-4.8) k/uL Monocytes # (0-1.0) k/uL Eosinophils # (0-0.7) k/uL Basophils # (0-0.2) k/uL Sodium 136 L (137-145) mmol/L Potassium 4.3 (3.5-5.1) mmol/L Chloride 107 (98-107) mmol/L Carbon Dioxide 19 L (22-30) mmol/L Anion Gap 10 mmol/L BUN 13 (7-17) mg/dL Creatinine 1.04 (0.52-1.04) mg/dL Est GFR (CKD-EPI)AfAm 79 (>60 ml/min/1.73 sqM) Est GFR (CKD-EPI)NonAf 68 (>60 ml/min/1.73 sqM) Glucose 109 H (74-99) mg/dL Calcium 9.4 (8.4-10.2) mg/dL Total Bilirubin 0.6 (0.2-1.3) mg/dL AST 20 (14-36) U/L ALT 14 (4-34) U/L Alkaline Phosphatase 109 (38-126) U/L Total Protein 7.6 (6.3-8.2) g/dL Albumin 4.5 (3.5-5.0) g/dL Amylase 76 (30-110) U/L Lipase 54 (23-300) U/L Urine Color Urine Appearance (Clear) Urine pH (5.0-8.0) Ur Specific Simms (1.001-1.035) Urine Protein (Negative) Urine Glucose (UA) (Negative) Urine Ketones (Negative) Urine Blood (Negative) Urine Nitrite (Negative) Urine Bilirubin (Negative) Urine Urobilinogen (<2.0) mg/dL Ur Leukocyte Esterase (Negative) Urine RBC (0-5) /hpf Urine WBC (0-5) /hpf Ur Squamous Epith Cells (0-4) /hpf Hyaline Casts (0-2) /lpf Urine Mucus (None) /hpf Urine HCG, Qual (Not Detectd) Disposition Clinical Impression: Hydrosalpinx, PID (pelvic inflammatory disease), Vaginal discharge, Pelvic cramping Disposition: HOME SELF-CARE Condition: Good Instructions (If sedation given, give patient instructions): Pelvic Inflammatory Disease (ED) Additional Instructions: Please use medication as discussed. Please follow-up with family doctor in the next 2 days, AND OBGYN In next 2-3 days. Please return to emergency room if the symptoms increase or worsen or for any other concerns. Prescriptions: RX: Doxycycline [Vibramycin] 100 mg PO BID 10 Days #20 capsule Is patient prescribed a controlled substance at d/c from ED?: No Referrals: Soheila Aponte MD [Primary Care Provider] - 1-2 days Sukhi Coombs MD [STAFF PHYSICIAN] - 1-2 days Time of Disposition: 01:50
[2020-07-30 15:45] LABS: C. trachomatis,PCR Negative (Neg,Equiv); Chlamydia trachomatis Source Vagina; N. gonorrhoeae,PCR Negative (Neg,Equiv); Neisseria Source Vagina
== END 2020-07-28 02:43 | disposition home or self-care (01) ==
LOC: EC 22:48
DX: N73.9 Female pelvic inflammatory disease, unspecified (principal); N70.11 Chronic salpingitis; F17.200 Nicotine dependence, unspecified, uncomplicated; F32.9 Major depressive disorder, single episode, unspecified; F41.9 Anxiety disorder, unspecified; J44.9 Chronic obstructive pulmonary disease, unspecified; Z90.09 Acquired absence of other part of head and neck
CPT/HCPCS: 36415; 80053; 82150; 83690; 85025; 81001; 81025; 87808; 87491; 87591; 87070; 93975; 76830; 74177; 99284; 96374; 96375; J2270; J0696; Q9967

== ENCOUNTER 2022-01-01 14:57 | Emergency (ER) | payer OTHER ==
[2022-01-01] MEDS ORDERED: AMOXIC-POT CLAV 875-125MG 1 EACH TAB PO STA (16:04)
[2022-01-01] MEDS ORDERED: HYDROcodone/APAP 10-325MG 1 EACH TAB PO ONE (16:09)
[2022-01-01] MEDS ORDERED: ACET/COD 300 MG/30 MG STARTER PACK 6 TAB BTL PO STA (16:09)
--- NOTE | 2022-01-01 16:11 | ED ---
ENT HPI - General Chief complaint: Dental/Oral Stated complaint: Dental issues Time Seen by Provider: 01/01/22 16:02 Source: patient Mode of arrival: ambulatory Limitations: no limitations - History of Present Illness Initial comments: Patient is a 41-year-old female who presents to the emergency department with chief complaint of dental pain. Patient reports toothache in her right lower tooth for the past 5 days. Patient states her pain usually goes away with Motrin however is not improving. She reports swelling of her right lower cheek. Denies fever, chills, trouble breathing, trouble swallowing. Patient states she has appointment with her dentist next week. - Related Data Home Medications Medication Instructions Recorded Confirmed Acetaminophen Tab [Tylenol Tab] 1,000 mg PO Q6HR PRN 09/27/19 09/27/19 Ergocalciferol [Vitamin D2] 50,000 unit PO TUTH 09/27/19 09/27/19 Loratadine [Claritin] 10 mg PO DAILY 09/27/19 09/27/19 PARoxetine [Paxil] 10 mg PO DAILY 09/27/19 09/27/19 Previous Rx's Medication Instructions Recorded Albuterol Sulfate [Proair Hfa] 1 - 2 puff INHALATION Q4HR PRN #1 09/27/19 inhaler Loratadine [Claritin] 10 mg PO DAILY #30 tab 09/27/19 guaiFENesin [Mucinex] 600 mg PO Q12HR PRN #24 tab.er.12h 09/27/19 Ibuprofen [Motrin] 600 mg PO Q8HR PRN #20 tab 04/12/20 Penicillin V Potassium [Pen Vee K] 500 mg PO QID #40 tablet 04/12/20 Doxycycline [Vibramycin] 100 mg PO BID 10 Days #20 capsule 07/28/20 Amoxic-Pot Clav 875-125Mg 1 tab PO Q12HR 7 Days #14 tab 01/01/22 [Augmentin 875-125] Allergies Allergy/AdvReac Type Severity Reaction Status Date / Time tramadol AdvReac Confusion Verified 07/27/20 22:55 Review of Systems ROS Statement: Those systems with pertinent positive or pertinent negative responses have been documented in the HPI. ROS Other: All systems not noted in ROS Statement are negative. Past Medical History Past Medical History: COPD Additional Past Medical History / Comment(s): backpain History of Any Multi-Drug Resistant Organisms: None Reported Past Surgical History: Tonsillectomy Past Psychological History: Anxiety, Bipolar, Depression Smoking Status: Current every day smoker Past Alcohol Use History: None Reported Past Drug Use History: None Reported General Exam Limitations: no limitations ENT exam: Absent: normal oropharynx (Minimal right mandible swelling. Dental cavity in the right lower molar. No drainable abscess.) Respiratory exam: Present: normal lung sounds bilaterally. Absent: respiratory distress, wheezes, rales, rhonchi, stridor Cardiovascular Exam: Present: regular rate, normal rhythm, normal heart sounds. Absent: systolic murmur, diastolic murmur, rubs, gallop, clicks Neurological exam: Present: alert, oriented X3, CN II-XII intact Psychiatric exam: Present: normal affect, normal mood Skin exam: Present: warm, dry, intact, normal color. Absent: rash Course Vital Signs 01/01/22 01/01/22 15:25 16:31 Temperature 98.2 F 98.1 F Pulse Rate 70 84 Respiratory 16 18 Rate Blood Pressure 125/73 128/81 O2 Sat by Pulse 98 100 Oximetry Medical Decision Making - Medical Decision Making This is a 41-year-old female presenting with toothache. Patient has dental cavity in the right lower molar with minimal right mandibular cheek swelling. No drainable abscess. No fever, no airway involvement. Patient will placed on Augmentin for possible tooth infection. Will send her home with Tylenol [address] Zamudio is my attending. Disposition Clinical Impression: Pain, dental, Dental cavity Disposition: HOME SELF-CARE Condition: Good Instructions (If sedation given, give patient instructions): Dental Abscess (ED), Toothache (ED) Additional Instructions: Take medication as directed. Follow-up with dentist next week as planned. Return to the emergency department if you experience new, concerning, or worsening symptoms. Prescriptions: Amoxic-Pot Clav 875-125Mg [Augmentin 875-125] 1 tab PO Q12HR 7 Days #14 tab Is patient prescribed a controlled substance at d/c from ED?: No Referrals: Soheila Aponte MD [Primary Care Provider] - 1-2 days Time of Disposition: 16:11
[2022-01-01 16:33] VITALS: BP 128/81; PULSE 84; RESP 18; TEMP 98.1
== END 2022-01-01 16:33 | disposition home or self-care (01) ==
LOC: EC 14:57
DX: K02.9 Dental caries, unspecified (principal); J44.9 Chronic obstructive pulmonary disease, unspecified; F17.200 Nicotine dependence, unspecified, uncomplicated; Z88.5 Allergy status to narcotic agent
CPT/HCPCS: 99282